=== PATIENT | female | born 1975 | race Hispanic/Latino ===

== ENCOUNTER 2017-01-26 17:33 | Emergency (ER) | payer BC ==
[2017-01-26 17:51] VITALS: BP 140/66
[2017-01-26 18:06] LABS: Hematocrit 43.5 % (30.3-42.9); Hemoglobin 14.5 gm/dl (10.1-14.3); Mean Corpuscular HGB Conc 33 % (30-34); Mean Corpuscular Hemoglobin 31 pg (28-32); Mean Corpuscular Volume 91 fl (79-97); Platelet Count 317 K/mm3 (140-440); Red Blood Count 4.76 M/mm3 (3.65-5.03); Red Cell Distribution Width 15.1 % (13.2-15.2); White Blood Count 10.4 K/mm3 (4.5-11.0)
[2017-01-26 18:25] LABS: Anion Gap 19 mmol/L; Blood Urea Nitrogen 15 mg/dL (7-17); Calcium 9.2 mg/dL (8.4-10.2); Carbon Dioxide 24 mmol/L (22-30); Chloride 101.5 mmol/L (98-107); Glucose 81 mg/dL (65-100); Sodium 140 mmol/L (137-145)
[2017-01-26 20:19] LABS: Bilirubin,Urine NEG (Negative); Blood,Urine LG (Negative); Ketones,Urine TR mg/dL (Negative); Leukocyte Esterase,Urine NEG (Negative); Mucus,Urine 1+ /HPF; Nitrite,Urine NEG (Negative); Urobilinogen,Urine < 2.0 mg/dL (<2.0)
[2017-01-26] MEDS ORDERED: NITROSTAT SL ONE (23:32)
[2017-01-26] MEDS ORDERED: BABY ASPIRIN ONE (23:32)
[2017-01-26] MEDS ORDERED: HEPARIN ONE (23:33)
== END 2017-01-26 22:00 | disposition left against medical advice (07) ==
LOC: ED 17:33
DX: R10.2 Pelvic and perineal pain (principal); Z53.21 Procedure and treatment not carried out due to patient leaving prior to being seen by health care provider
CPT/HCPCS: 36415; 80048; 81001; 81025; 85027; A9270-GY; J1644

== ENCOUNTER 2017-03-17 11:09 | Outpatient (CLI) | payer BC ==
[2017-03-17 12:45] LABS: HIV-1 Antigen p24 Non React (Non React); HIVR-1/2 Ab Non React (Non React)
== END 2017-03-17 11:10 | disposition home or self-care (01) ==
LOC: LAB 11:09
PROVIDERS: ATTEND Obstetrics & Gynecology
DX: Z01.419 Encounter for gynecological examination (general) (routine) without abnormal findings (principal); E78.00 Pure hypercholesterolemia, unspecified; Z71.89 Other specified counseling
CPT/HCPCS: 36415; 80061; 80074; 83036; 86592; 87529; 87806

== ENCOUNTER 2019-03-22 07:48 | Outpatient (CLI) | payer BC ==
--- NOTE | 2019-03-22 09:49 | Ultrasound Report ---
ULTRASOUND THYROID INDICATION / CLINICAL INFORMATION: THYROID NODULE. COMPARISON: 06/22/2018 FINDINGS: RIGHT LOBE: Size = 4.4 x 1.3 x 1.9 cm. - Echogenicity: Heterogeneous - Vascularity: Increased - Nodules < 1 cm: None. - Nodules >= 1 cm or Suspicious Nodules: None. LEFT LOBE: Size = 4.5 x 2.0 x 2.3 cm. - Echogenicity: Heterogeneous - Vascularity: Increased - Nodules < 1 cm: None. - Nodules >= 1 cm or Suspicious Nodules: Slightly complex nodule in the mid left thyroid lobe is agai n seen and measures 1.1 x 1.6 x 1.7 cm. - NODULE # 1 -- Location: mid -- Size: 1.1 x 1.6 x 1.7 cm -- Composition: Solid = 2 points -- Echogenicity: Hypoechoic = 2 points -- Shape: [id number] = 0 points -- Margin: Lobulated or Irregular = 2 points -- Echogenic Foci: Punctate echogenic foci = 3 points -- Additional Findings: None. -- ACR TI-RADS Score = 7+. -- ACR TI-RADS Category = TR-5 (7+ points). ISTHMUS: No significant abnormality. Thickness = 0.6 cm. - Nodules < 1 cm: None. - Nodules >= 1 cm or Suspicious Nodules: None. LYMPH NODES: No abnormal lymph nodes. PARATHYROID GLANDS: No abnormal parathyroid gland. ADDITIONAL FINDINGS: None. IMPRESSION: Normal sized thyroid gland with diffuse heterogeneous echotexture. Left thyroid nodule as described above which appears unchanged since 06/22/2018. Note: Nodule size based on mean (average) size of 3 dimensions. Note: Nodules < 1 cm do not typically require follow-up or FNA unless there are suspicious features ( BHAVESH, 2015) ACR TI-RADS Thyroid Nodule Recommendations TI-RADS 1 (0 points) -- Benign. No FNA or follow-up. TI-RADS 2 (1-2 points) -- Not suspicious. No FNA or follow-up. TI-RADS 3 (3 points) -- Mildly suspicious. Follow up in 1 year if 1.5 cm. FNA if 2.5 cm. TI-RADS 4 (4-6 points) -- Moderately suspicious. Follow up in 1 year if 1.0 cm. FNA if 1.5 cm. TI-RADS 5 (7+ points) -- Highly suspicious. Follow up in 1 year if 0.5 cm. FNA if 1.0 cm. Signer Name: Fredo Johnson Jr, MD Signed: 03/22/2019 9:45 AM Workstation Name: [id number]
== END 2019-03-22 07:49 | disposition home or self-care (01) ==
LOC: SPVWC 07:48
PROVIDERS: ATTEND Internal Medicine Endocrinology, Diabetes & Metabolism
DX: E04.1 Nontoxic single thyroid nodule (principal)
CPT/HCPCS: 76536

== ENCOUNTER 2019-05-20 11:12 | Outpatient (CLI) | payer BC ==
[2019-05-20 12:26] LABS: Alanine Aminotransferase 15 units/L (7-56); Albumin 3.9 g/dL (3.9-5)
[2019-05-20 12:35] LABS: Bilirubin,Direct < 0.2 mg/dL (0-0.2)
[2019-05-31 07:14] LABS: HIV-1 Antibody Differentiation SEE SCANNED RESULT; HIV-2 Antibody Differentiation SEE SCANNED RESULT
== END 2019-05-20 11:13 | disposition home or self-care (01) ==
LOC: LAB 11:12
PROVIDERS: ATTEND Obstetrics & Gynecology
DX: Z01.419 Encounter for gynecological examination (general) (routine) without abnormal findings (principal)
CPT/HCPCS: 36415; 80076; 82670; 83001; 84146; 86592; 86689

== ENCOUNTER 2019-05-31 08:32 | Outpatient (CLI) | payer BC ==
--- NOTE | 2019-05-31 10:30 | Ultrasound Report ---
TRANSABDOMINAL PELVIC AND TRANSVAGINAL ULTRASOUND HISTORY: PELVIC PAIN COMPARISON: None. TECHNIQUE: Routine transabdominal and transvaginal pelvic ultrasound performed. FINDINGS: TRANSABDOMINAL PELVIC ULTRASOUND: Uterus: Small with normal contour and echogenicity without uterine mass. Uterus measures 7.1 x 2.8 x 4.8 cm. Endometrium: Normal in thickness. Right Ovary: Not well imaged. Left Ovary: Not well imaged. Additional findings: Transvaginal exam was performed for better delineation of the endometrium and ov shira. TRANSVAGINAL PELVIC ULTRASOUND: Uterus: Normal size and echogenicity. No masses. . Endometrium: Normal thickness measuring 5.0 mm. Right Ovary: Normal size and appearance measuring 2.0 x 0.9 x 1.2 cm. Left Ovary: Anechoic cysts measure 2.8 x 1.6 x 1.5 cm and 1.2 x 0.9 x 1.2 cm. It measures 4.6 x 2.5 x 2.2 cm. Left ovary was tender to the pressure of the vaginal probe. Additional findings: No free fluid. IMPRESSION: 1. Uterus and right ovary. 2. Left ovarian cysts with the largest measuring 2.8 cm. Signer Name: Robe Loja MD Signed: 05/31/2019 10:26 AM Workstation Name: [id number]
== END 2019-05-31 08:33 | disposition home or self-care (01) ==
LOC: SPVWC 08:32
PROVIDERS: ATTEND Obstetrics & Gynecology
DX: N83.202 Unspecified ovarian cyst, left side (principal)
CPT/HCPCS: 76830; 76856

== ENCOUNTER 2019-06-23 10:18 | Outpatient (CLI) | payer BC ==
[2019-06-23 11:17] LABS: Basophils # (Auto) 0.1 K/mm3 (0.0-0.1); Basophils % (Auto) 1.2 % (0.0-1.8); Eosinophils # (Auto) 0.1 K/mm3 (0.0-0.4); Hematocrit 43.4 % (30.3-42.9); Hemoglobin 14.5 gm/dl (10.1-14.3); Lymphocytes # (Auto) 1.5 K/mm3 (1.2-5.4); Lymphocytes % (Auto) 27.4 % (13.4-35.0); Mean Corpuscular HGB Conc 34 % (30-34); Mean Corpuscular Volume 90 fl (79-97); Monocytes # (Auto) 0.4 K/mm3 (0.0-0.8); Monocytes % (Auto) 7.8 % (0.0-7.3); Platelet Count 317 K/mm3 (140-440); Red Blood Count 4.84 M/mm3 (3.65-5.03); Red Cell Distribution Width 15.1 % (13.2-15.2)
[2019-06-23 11:36] LABS: Alanine Aminotransferase 13 units/L (7-56); Albumin 4.1 g/dL (3.9-5); BUN/Creatinine Ratio 30; Blood Urea Nitrogen 18 mg/dL (7-17); Calcium 8.8 mg/dL (8.4-10.2); Chol/HDL Ratio 2.97 %; HDL Cholesterol 70 mg/dL (40-59); Hemolysis Index 2; LDL Cholesterol,Direct 137 mg/dL (50-130)
[2019-06-26 13:46] LABS: Vitamin D, 25-OH, D2 <4 ng/mL
== END 2019-06-23 10:19 | disposition home or self-care (01) ==
LOC: LAB 10:18
PROVIDERS: ATTEND Internal Medicine
DX: Z13.1 Encounter for screening for diabetes mellitus (principal); Z13.220 Encounter for screening for lipoid disorders; Z13.21 Encounter for screening for nutritional disorder; E05.90 Thyrotoxicosis, unspecified without thyrotoxic crisis or storm
CPT/HCPCS: 36415; 80053; 80061; 82306; 82607; 83036; 85025

== ENCOUNTER 2020-07-05 09:11 | Outpatient (CLI) | payer BC ==
--- NOTE | 2020-07-05 11:57 | Mammography Report ---
DIGITAL SCREENING MAMMOGRAM WITH CAD, 07/05/2020 CLINICAL INFORMATION / INDICATION: Routine screening mammography. TECHNIQUE: Digital bilateral 2D mammography was obtained in the craniocaudal and mediolateral obliqu e projections. This examination was interpreted with the benefit of Computer-Aided Detection analysis . COMPARISON: 07/14/2019, 07/13/2018 FINDINGS: Breast Density: The breasts are almost entirely fatty. No dominant mass, suspicious calcifications, or architectural distortion in the left breast. The prev iously biopsied right breast nodule is unchanged. No other significant abnormality of the right breas t. IMPRESSION: No mammographic evidence of malignancy. Follow up recommendation: Routine yearly BI-RADS Category 2: Benign. A "normal" or negative report should not discourage follow up or biopsy of a clinically significant f inding. A written summary of these findings will be mailed to the patient. The patient will be entered into a mammography reporting system which will generate a reminder letter for the patient's next appointmen t at the appropriate interval. The [employer] recommends yearly mammograms starting at age 40 and continuing as l ammy as a woman is in good health. Breast MRI is recommended for women with an approximate 20-25% or greater lifetime risk of breast cancer, including women with a strong family history of breast or ova cindy cancer or who have been treated for Hodgkin's disease. Signer Name: Mynor Boggs MD Signed: 07/05/2020 11:51 AM Workstation Name: [id number]
== END 2020-07-05 09:12 | disposition home or self-care (01) ==
LOC: SPVWC 09:11
PROVIDERS: ATTEND Surgery
DX: Z12.31 Encounter for screening mammogram for malignant neoplasm of breast (principal)
CPT/HCPCS: 77067

== ENCOUNTER 2020-07-12 09:36 | Outpatient (CLI) | payer BC ==
[2020-07-12 10:06] LABS: Basophils # (Auto) 0.1 K/mm3 (0.0-0.1); Basophils % (Auto) 0.9 % (0.0-1.8); Eosinophils # (Auto) 0.2 K/mm3 (0.0-0.4); Eosinophils % (Auto) 2.6 % (0.0-4.3); Hematocrit 37.3 % (30.3-42.9); Hemoglobin 13.1 gm/dl (10.1-14.3); Lymphocytes # (Auto) 1.5 K/mm3 (1.2-5.4); Lymphocytes % (Auto) 24.5 % (13.4-35.0); Mean Corpuscular HGB Conc 35 % (30-34); Mean Corpuscular Volume 87 fl (79-97); Monocytes # (Auto) 0.4 K/mm3 (0.0-0.8); Monocytes % (Auto) 6.6 % (0.0-7.3); Platelet Count 329 K/mm3 (140-440); Red Blood Count 4.27 M/mm3 (3.65-5.03); Red Cell Distribution Width 13.6 % (13.2-15.2)
[2020-07-12 10:28] LABS: Alanine Aminotransferase 17 units/L (7-56); Albumin 3.9 g/dL (3.9-5); Blood Urea Nitrogen 24 mg/dL (7-17); Calcium 9.1 mg/dL (8.4-10.2); Chol/HDL Ratio 2.53 %; HDL Cholesterol 89 mg/dL (40-59); Hemolysis Index 0; LDL Cholesterol,Direct 141 mg/dL (50-130)
[2020-07-12 10:34] LABS: BUN/Creatinine Ratio 40
[2020-07-12 10:44] LABS: Free T4 (Free Thyroxine) 1.14 ng/dL (0.76-1.46)
== END 2020-07-12 09:37 | disposition home or self-care (01) ==
LOC: LAB 09:36
PROVIDERS: ATTEND Internal Medicine
DX: Z00.00 Encounter for general adult medical examination without abnormal findings (principal); Z13.1 Encounter for screening for diabetes mellitus; Z13.220 Encounter for screening for lipoid disorders; E05.90 Thyrotoxicosis, unspecified without thyrotoxic crisis or storm; Z13.21 Encounter for screening for nutritional disorder
CPT/HCPCS: 36415; 80053; 80061; 82607; 82672; 83001; 83036; 84439; 84443; 85025